=== PATIENT | male | born 1965 | race African-American/Black ===

== ENCOUNTER → 2019-03-15 | Outpatient (CLI) | payer BC ==
--- NOTE | 2019-03-15 14:51 | KCIC ---
MR of the right knee HISTORY: Right knee pain. Locking and catching. Pain persists 6 weeks. TECHNIQUE: Routine multiplanar sequences are obtained. FINDINGS: No evidence of a medial meniscal tear. Mild fluid signal within the anterior horn of the lateral meniscus suspicious for small tear. Posterior horn is intact. Anterior and posterior cruciate ligaments are intact. Medial collateral ligament is intact. Iliotibial band unremarkable. Fibular collateral ligament, biceps femoris tendon and popliteus tendon are intact. Extensor mechanism is intact. Small joint effusion. Moderate chondromalacia at the patellofemoral joint. [id number] lateral compartment chondromalacia. No acute fracture. No aggressive bone destruction. No significant Bro's cyst. IMPRESSION: 1. Suspect small isolated tear of the anterior horn of the lateral meniscus. 2. Degenerative chondromalacia, somewhat greater at the patellofemoral joint. Electronically signed by: Camron Zhang MD (03/15/2019 2:49 PM) [id number]
== END | disposition home or self-care (01) ==
LOC: KCIC MRI 11:40
PROVIDERS: ATTEND Family Medicine
DX: M94.261 Chondromalacia, right knee (principal); M25.461 Effusion, right knee
CPT/HCPCS: 73721